=== PATIENT | female | born 1995 | race Caucasian/White ===

== ENCOUNTER 2018-03-05 19:24 | Emergency (ER) | payer MEDICAID, SELFPAY ==
[2018-03-05 19:26] VITALS: BP 125/79; PULSE 109; RESP 14; RESP 18; TEMP 36.9; O2SAT 98; BMI 39.1
--- NOTE | 2018-03-05 21:18 | NURSING ---
crisis states pt is cleared to go home with safety plan and followup appt. family aware and remains at bedside. awaiting MD discharge ppwk
[2018-03-05 21:25] VITALS: BP 99/67; PULSE 96; RESP 18; O2SAT 97
[2018-03-05 22:26] LABS: Absolute Lymphocyte Count 1.83 X10^3/ul (0.83-4.51); Absolute Neutrophil Count 2.8 X10^3/uL (2.0-7.7); Basophil# 0.01 X10^3/uL; Basophil% 0.2 % (0-1); Eosinophil# 0.06 X10^3/uL; Eosinophils% 1.2 % (0-5); Hematocrit 27.7 % (37-47); Hemoglobin 8.3 g/dl (12.0-15.0); Lymphocyte # 1.83 X10^3/ul (4.0); Lymphocyte % 35.8 % (19-41); Mean Corpuscular Hgb 27.1 pg (27.0-32.0); Mean Corpuscular Volume 90.5 fL (81-99); Mean Platelet Vol. 10.5 fl (6.2-12.0); Monocyte# 0.41 X10^3/uL; Neutrophil % 54.8 % (47-70); Platelet Count 380 K/mm3 (150-450); RBC Distribution Width CV 15.9 % (11.6-14.6); RBC Distribution Width SD 52.1 fl (35.1-43.9); Red Blood Count 3.06 M/mm3 (4.2-5.4); White Blood Count 5.1 K/mm3 (4.4-11.0)
[2018-03-05 22:27] LABS: POSITIVE COUNT NO; POSITIVE DIFFERENTIAL NO; POSITIVE MORPHOLOGY NO
[2018-03-05 22:34] LABS: Anion Gap 5 (5-15); BUN 11 mg/dL (7-18); Calcium,Total 8.2 mg/dL (8.5-10.1); Chloride 106 mmol/L (98-107); Creatinine, Serum 0.73 mg/dL (0.55-1.02); EST Glomerular Filtration Rate 104 mL/min (>60); Est Glom Filt Rate - Afr Amer 126 mL/min (>60); Glucose 93 mg/dL (74-106); Potassium 3.8 mmol/L (3.5-5.1); Sodium Level 138 mmol/L (136-145)
[2018-03-05 23:00] VITALS: BP 98/75; PULSE 89; RESP 16; O2SAT 98
--- NOTE | 2018-03-05 23:48 | ED.VISSUMM ---
- ER Visit Summary Date of Service: 03/05/18 Chief Complaint: Wound check History of Present Illness: The patient is a 22 F who presents for a wound check. She is about 2 weeks and did have a . She states that since yesterday she has had increased redness tenderness foul odor and green drainage from an opening in her wound. She vomited once today while in the shower. She felt dizzy but that improved after getting out of the shower. She also complains of some intermittent headaches ever since delivery. No fevers chest pain shortness of breath. Physical Examination: Heart rate 109 vitals otherwise normal Moist mucous membranes Heart regular rhythm tachycardia Lungs are clear Abdomen soft there is some mild wound dehiscence along the right side of the wound. I do not appreciate foul odor or drainage at this time. However there is a significant cellulitis involving most of the lower abdomen. Test Results: Labs notable for a hemoglobin of 8.3. Emergency Department Course and Treatment: Patient was given IV Unasyn. She was transferred to [facility] for further care. Treatment Plan: [] Disposition: Transfer Impression: Postoperative wound infection Cellulitis This note was generated with ipnexus dictation software. It may contain incorrect words, spelling, and punctuation that were not noted in review of the chart prior to signing ED Disposition - Plan for ED Patient: Chief Complaint: Wound Referrals: Care Physician,No Primary [Primary Care Provider] -
--- NOTE | 2018-03-05 23:51 | ED.DCSUM_ITS ---
- ER Visit Summary Date of Service: 03/05/18 Chief Complaint: Wound check History of Present Illness: The patient is a 22 F who presents for a wound check. She is about 2 weeks and did have a . She states that since yesterday she has had increased redness tenderness foul odor and green drainage from an opening in her wound. She vomited once today while in the shower. She felt dizzy but that improved after getting out of the shower. She also complains of some intermittent headaches ever since delivery. No fevers chest pain shortness of breath. Physical Examination: Heart rate 109 vitals otherwise normal Moist mucous membranes Heart regular rhythm tachycardia Lungs are clear Abdomen soft there is some mild wound dehiscence along the right side of the wound. I do not appreciate foul odor or drainage at this time. However there is a significant cellulitis involving most of the lower abdomen. Test Results: Labs notable for a hemoglobin of 8.3. Emergency Department Course and Treatment: Patient was given IV Unasyn. She was transferred to [facility] for further care. Treatment Plan: [] Disposition: Transfer Impression: Postoperative wound infection Cellulitis This note was generated with Syllabuster dictation software. It may contain incorrect words, spelling, and punctuation that were not noted in review of the chart prior to signing ED Disposition - Plan for ED Patient: Chief Complaint: Wound Referrals: Care Physician,No Primary [Primary Care Provider] -
[2018-03-06 00:25] VITALS: BP 108/80; PULSE 87; RESP 20; TEMP 36.9; O2SAT 97
== END 2018-03-06 01:19 | disposition short-term general hospital (02) ==
LOC: ED 22:24
PROVIDERS: Emergency Provider Emergency Medicine
DX: O86.09 Infection of obstetric surgical wound, other surgical site (principal); T81.30XA Disruption of wound, unspecified, initial encounter
CPT/HCPCS: 80048; 85025; 96365; 99284; J7050; A4216; J0295

== ENCOUNTER 2018-08-28 17:41 | Emergency (ER) | payer MEDICAID, SELFPAY ==
[2018-08-28 17:43] VITALS: BP 133/70; PULSE 112; RESP 16; TEMP 36.5; O2SAT 99; BMI 43.0
[2018-08-28 17:47] VITALS: BP 133/70; PULSE 112; RESP 16; TEMP 36.5; O2SAT 99
--- NOTE | 2018-08-28 17:59 | ED.VISSUMM ---
- ER Visit Summary Date of Service: 08/28/18 Chief Complaint: [Redness and drainage from scar] History of Present Illness: The patient is a 23 F [presents to the emergency department with complaint of some redness and drainage that she noticed to her scar yesterday. Patient states that she had a in February 2018 and 3 weeks later developed a wound infection. Patient required IV antibiotics for that. Eventually things resolved. Yesterday she lifted up her fat roll and noted that there was some drainage on her fingertip over the area of the incision and had a follow odor to it and she is concerned about wound infection again. Patient's not had any fevers. No urinary symptoms. No other complaints.] Physical Examination: [HEENT-PERRLA, EOMI. Cranial nerves II through XII grossly intact. TMs clear. Mucous membranes moist. No adenopathy. Cardiovascular-regular rate and rhythm without murmur or ectopy Lungs-clear to auscultation, chest wall stable without crepitus or subcu emphysema Abdomen-normoactive bowel sounds, soft, nontender, no rebound or rigidity, no peritoneal signs. Evaluation of the skin of the abdomen reveals that over the right side of the incision there is a circular area of erythema measuring approximately 3 cm in diameter. There is no evidence of dehiscence of the wound. There are no open areas in the skin. No drainage noted. Extremities-intact ?4, normal range of motion, normal pulses, atraumatic] Test Results: [None indicated] Emergency Department Course and Treatment: [Area of erythema was outlined in marker. Patient was given a dose of Keflex in the emergency department Treatment Plan: [I suspect the area of erythema may be fungal as it is in the skin fold. I will treat her with nystatin and also will cover with Keflex for possible cellulitis.] Disposition: [Discharged home in stable condition] Impression: [Candidal yeast infection] This note was generated with DataStax dictation software. It may contain incorrect words, spelling, and punctuation that were not noted in review of the chart prior to signing ED Disposition - Plan for ED Patient: Referrals: [facility] Doctor,Out of [Primary Care Provider] -
--- NOTE | 2018-08-28 18:02 | ED.DCSUM_ITS ---
- ER Visit Summary Date of Service: 08/28/18 Chief Complaint: [Redness and drainage from scar] History of Present Illness: The patient is a 23 F [presents to the emergency department with complaint of some redness and drainage that she noticed to her scar yesterday. Patient states that she had a in February 2018 and 3 weeks later developed a wound infection. Patient required IV antibiotics for that. Eventually things resolved. Yesterday she lifted up her fat roll and noted that there was some drainage on her fingertip over the area of the incision and had a follow odor to it and she is concerned about wound infection again. Patient's not had any fevers. No urinary symptoms. No other complaints.] Physical Examination: [HEENT-PERRLA, EOMI. Cranial nerves II through XII grossly intact. TMs clear. Mucous membranes moist. No adenopathy. Cardiovascular-regular rate and rhythm without murmur or ectopy Lungs-clear to auscultation, chest wall stable without crepitus or subcu emphysema Abdomen-normoactive bowel sounds, soft, nontender, no rebound or rigidity, no peritoneal signs. Evaluation of the skin of the abdomen reveals that over the right side of the incision there is a circular area of erythema measuring approximately 3 cm in diameter. There is no evidence of dehiscence of the wound. There are no open areas in the skin. No drainage noted. Extremities-intact ?4, normal range of motion, normal pulses, atraumatic] Test Results: [None indicated] Emergency Department Course and Treatment: [Area of erythema was outlined in marker. Patient was given a dose of Keflex in the emergency department Treatment Plan: [I suspect the area of erythema may be fungal as it is in the skin fold. I will treat her with nystatin and also will cover with Keflex for possible cellulitis.] Disposition: [Discharged home in stable condition] Impression: [Candidal yeast infection] This note was generated with [employer]zmik [employer] dictation software. It may contain incorrect words, spelling, and punctuation that were not noted in review of the chart prior to signing ED Disposition - Plan for ED Patient: Referrals: [facility] Doctor,Out of [Primary Care Provider] -
--- NOTE | 2018-08-28 18:02 | ED.DEP ---
ED Disposition - Plan for ED Patient: Instructions: ED Candidiasis Cutaneous Prescriptions: Cephalexin [Keflex] 500 mg PO Q6 #28 cap Nystatin/Triamcin Cream [Mycolog] 1 applic TOPICAL BID #1 tube Referrals: [facility] Doctor,Out of [Primary Care Provider] - 3-5 Days
[2018-08-28 18:03] VITALS: BP 119/77; PULSE 105; RESP 16; O2SAT 99
== END 2018-08-28 18:09 | disposition home or self-care (01) ==
LOC: ED 18:04
PROVIDERS: Emergency Provider Emergency Medicine
DX: B37.2 Candidiasis of skin and nail (principal)
CPT/HCPCS: 99282

== ENCOUNTER → 2019-12-10 | Outpatient (CLI) | payer MEDICAID, SELFPAY | END | disposition home or self-care (01) | LOC: LABSPEC 17:56 | DX: Z20.828 Contact with and (suspected) exposure to other viral communicable diseases (principal) | CPT/HCPCS: 87635; 94799; U0003 ==

== ENCOUNTER 2019-12-12 10:45 | Emergency (ER) | payer MEDICAID, SELFPAY ==
[2019-12-12 10:46] VITALS: BP 152/83; PULSE 102; RESP 16; TEMP 36.1; O2SAT 99; BMI 47.5
[2019-12-12 10:48] VITALS: BP 152/83; PULSE 102; RESP 16; TEMP 36.1; O2SAT 99
[2019-12-12] MEDS: Naproxen 250 MG Tablet 500 MG PO (11:05)
--- NOTE | 2019-12-12 11:11 | RAD_ITS ---
STUDY: X-RAY CHEST REASON FOR EXAM: Female, 24 years old. Cough and sore throat. TECHNIQUE: Single AP portable view of the chest. COMPARISON: 09/01/2014. FINDINGS: There are hypoventilatory changes in right lung base. No focal infiltrate is seen. There is no demonstrated pleural abnormality. Normal size heart. Normal mediastinum and kristin. Normal visualized pulmonary arteries. Normal visualized aortic arch and descending thoracic aorta. Normal visualized thoracic spine. Normal visualized ribs, clavicles, and shoulders. There is no demonstrated abnormality of the visualized soft tissue structures of the upper abdomen. RAD/Chest 1 View (Portable) IMPRESSION: Normal x-ray examination of the chest. Electronically Signed: Joel Garza MD at 12:03 EDT Tel , Service support ,
--- NOTE | 2019-12-12 11:55 | ED.DCSUM_ITS ---
- ER Visit Summary Date of Service: 12/12/19 Chief Complaint: Sore throat and cough History of Present Illness: The patient is a [address] Sherwood. She reports she has a sore throat that began 3 days ago. Says sharp pain is 1010 worsening to 10 currently. Is worsened by swallowing. She is taken Tylenol and NyQuil with minimal relief. She went to the urgent care 3 days ago and was placed on amoxicillin and has not had any improvement. She denies any known strep exposure. She states that however that this is similar pain to when she had strep before. They did test her for COVID 2 days ago. She has not gotten a result on this. She denies sick contacts. Patient reports that she has had subjective fever and chills for the past 3 days. She is congested. She has a cough productive green sputum without blood. She denies any chest pain or shortness of breath. Physical Examination: Vitals: Stable. Afebrile. General: Well-nourished and well-developed. Head: Normocephalic atraumatic. HEENT: Pharyngeal erythema. No tonsillar exudate or enlargement. No cervical lymphadenopathy. Neck: Supple, no lymphadenopathy. No JVD. Nontender. Cardiovascular: Regular rate and rhythm. No murmurs. Respiratory: No respiratory distress. Clear to auscultation bilaterally. Abdominal: Soft, nontender, nondistended, normal bowel sounds. No guarding, rebound, or peritoneal signs. Back: Nontender. Extremities: Nontender, no edema. Skin: Normal color, no rash. Neurologic: Alert and oriented ?3. Cranial nerves II through XII are intact. Normal strength and sensation. Psych: Normal affect. Test Results: Chest x-ray shows no acute disease. There is a poor inspiration. Rapid strep is negative. Emergency Department Course and Treatment: Patient was treated with naproxen and dexamethasone. She is resting comfortably. Treatment Plan: Had a prolonged discussion the patient that at this time I cannot rule out COVID. She is instructed to get the results of her test as soon as possible. She is instructed to quarantine in the meantime. Symptomatic care with fluids, Tylenol, and ibuprofen. Follow-up with her primary care physician in 2 weeks if not improving. Return to the emergency department for any worsening symptoms. Disposition: To home in improved and stable condition. Impression: 1. URI. 2. Pharyngitis. This note was generated with Game[employer] dictation software. It may contain incorrect words, spelling, and punctuation that were not noted in review of the chart prior to signing ED Disposition - Plan for ED Patient: Instructions: ED Pharyngitis Report Pending, ED Upper Resp Infec No Abx Tx Referrals: Nikhil Hess MD [Primary Care Provider] - 10-14 Days if not better
[2019-12-12 12:18] VITALS: RESP 18; O2SAT 98
== END 2019-12-12 12:19 | disposition home or self-care (01) ==
LOC: ED 11:02
PROVIDERS: Emergency Provider Emergency Medicine; PCP Family Medicine
DX: J02.9 Acute pharyngitis, unspecified (principal); J06.9 Acute upper respiratory infection, unspecified
CPT/HCPCS: 71045; 87880; 99283

== ENCOUNTER 2020-12-17 22:36 | Emergency (ER) | payer MEDICAID, SELFPAY ==
[2020-12-17 22:37] VITALS: BP 125/85; PULSE 152; RESP 16; TEMP 36.8; O2SAT 99; BMI 33.3
[2020-12-17 22:38] VITALS: BP 125/85; PULSE 152; RESP 16; TEMP 36.8; O2SAT 99
--- NOTE | 2020-12-17 23:28 | EDS_ITS ---
HPI HPI - GI History of Present Illness Chief Complaint: Diarrhea Informant: patient Narrative Narrative: Patient presents after multiple episodes of watery diarrhea today. She estimates she has had 40 episodes. She felt a little lightheaded in the shower. 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 She is not having chest pain or trouble breathing. She is actually not having any abdominal pain. No fevers or chills. She is not nauseated. No recent antibiotics travel or bad foods. No one she knows of is ill. Only abdominal surgery was gastric sleeve about 9 months ago and she has h ad no issues with this she is losing about 2 pounds per week. Nothing really makes the symptoms better or worse. Urination does not hurt her or burn. She does state that the urine is getting a little darker and decreased amount. PFSH PFSH Home Medications NK 12/12/19 [History Last Taken Unknown] Allergy/AdvReac Type Severity Reaction Status Date / Time nitrofurantoin Allergy Other Verified 12/17/20 22:38 [From Macrobid] Social History Smoking Status: Never smoker ROS ROS ED Constitutional Constitutional ED: Denies chills, fever(s), subjective, sweats or weight loss ENT ENT ED: Denies rhinorrhea or sore throat Cardiovascular Cardiovascular: Denies chest pain or palpitations Respiratory/Chest Respiratory/Chest: Denies cough, dyspnea or sputum Gastrointestinal Gastrointestinal: Reports diarrhea; Denies abdominal pain, constipation, melena, nausea or vomiting Genitourinary Genitourinary ED: Denies dysuria or hematuria Musculoskeletal Musculoskeletal: Denies back pain Integumentary Denies rash Neurologic Neurologic: Denies headache(s) or weakness Endocrine Endocrinology: Denies polydipsia or polyuria Hematologic/Lymphatic Hematologic/Lymphatic: Denies easy bleeding or easy bruising Allergic/Immunologic Allergic/Immunologic ED: Denies mouth swelling EXAM Physical Exam Const Vital Signs: 12/17/20 22:37 12/17/20 22:38 Temperature 98.2 F 98.2 F Temperature Source Temporal Temporal Pulse Rate 152 H 152 H Respiratory Rate 16 16 Blood Pressure 125/85 H 125/85 H Blood Pressure Mean 98 98 Pulse Ox 99 99 Oxygen Delivery Method Room Air Room Air Positive well nourished and well developed General Appearance ED: well developed and NAD MILES Reports dry mucous membranes Mouth ED: Yes dry mucous membranes Mouth: dry mucous membranes Eyes General Eye ED: Negative for pale conjunctiva or scleral icterus Resp normal respiratory effort Cardio regular rate, regular rhythm and no murmurs GI non-tender, non-distended and no masses Auscultation: normoactive bowel sounds Palpation: soft Back/Spine no CVA tenderness Neuro Sensorium / Orientation: alert and oriented to person Psych mental status grossly normal Skin Rashes: no rashes MDM MDM MDM Narrative Medical decision making narrative: Patient's blood work shows normal white count and hemoglobin. Electrolytes are normal other than a potassium of 3.3. We will replace this. is negative. Urine shows ketones consistent with decreased p.o. intake but otherwise no acute sign of infection. I rechecked the patient. She states she feels well. She went to the restroom once but really did not have much diarrhea. She would like to go home. She is not coughing. Her abdominal exam is quite benign. Her heart rate is still about 120s. She tells me her heart rate always runs in the 120s or more. This is why she is following up with cardiology. We will check EKG. EKG was checked. She is running heart rate of 123 which she states is her normal. Since she feels well I think it is reasonable we get her home. She has follow-up arranged. Lab Data Attestation: I reviewed the patient's lab results. Labs: Laboratory Results - last 24 hr 12/17/20 12/17/20 12/17/20 23:36 23:36 23:36 WBC 7.8 RBC 4.10 L Hgb 12.3 Hct 38.8 MCV 94.6 MCH 30.0 MCHC 31.7 L RDW Std Deviation 45.1 H RDW Coeff of Obdulio 13.0 Plt Count 253 MPV 11.8 Immature Gran % (Auto) 0.300 Neut % (Auto) 87.2 H Lymph % (Auto) 5.5 L [place] % (Auto) 6.7 Eos % (Auto) 0.0 Baso % (Auto) 0.3 Absolute Neuts (auto) 6.8 Absolute Lymphs (auto) 0.43 L Nucleated RBC % 0 Sodium 138 Potassium 3.3 L Chloride 106 Carbon Dioxide 24.0 Anion Gap 8 BUN 14 Creatinine 0.74 Estim Creat Clear Calc 91.12 Est GFR (MDRD) Af Amer 122 Est GFR (MDRD) Non-Af 101 BUN/Creatinine Ratio 19.0 Glucose 103 Calcium 8.9 Serum , Qual NEGATIVE Urine Color Urine Clarity Urine pH Ur Specific [place] Urine Protein Urine Glucose (UA) Urine Ketones Urine Occult Blood Urine Nitrite Urine Bilirubin Urine Urobilinogen Ur Leukocyte Esterase Urine RBC Urine WBC Ur Squamous Epith Cells Urine Bacteria Urine Mucus 12/18/20 00:35 WBC RBC Hgb Hct MCV MCH MCHC RDW Std Deviation RDW Coeff of Obdulio Plt Count MPV Immature Gran % (Auto) Neut % (Auto) Lymph % (Auto) [place] % (Auto) Eos % (Auto) Baso % (Auto) Absolute Neuts (auto) Absolute Lymphs (auto) Nucleated RBC % Sodium Potassium Chloride Carbon Dioxide Anion Gap BUN Creatinine Estim Creat Clear Calc Est GFR (MDRD) Af Amer Est GFR (MDRD) Non-Af BUN/Creatinine Ratio Glucose Calcium Serum , Qual Urine Color Yellow Urine Clarity Clear Urine pH 5.0 Ur Specific [place] 1.020 Urine Protein 15 H Urine Glucose (UA) Normal Urine Ketones 150 A* Urine Occult Blood 10 H Urine Nitrite Negative Urine Bilirubin Negative Urine Urobilinogen Normal Ur Leukocyte Esterase Negative Urine RBC 0 SEEN Urine WBC 0 SEEN Ur Squamous Epith Cells 0-5 SEEN Urine Bacteria RARE Urine Mucus 0 SEEN EKG Initial EKG: Comments: EKG done for tachycardia read by me shows sinus rhythm with tachycardic rate at 123. No ventricular ectopy. No acute ST elevation or depression consistent with infarct or ischemia. AK interval, QRS duration and QTc normal. Discharge Plan Triage Chief Complaint: Diarrhea ED Provider: Renard Castillo Dx/Rx/DC Orders Prescriptions: No Action NK RF: 0 Primary Care Provider: Nikhil Hess
[2020-12-17] MEDS: 0.9% Normal Saline 1,000 ML 1000 ML IV (23:39)
[2020-12-17] MEDS: Dicyclomine 20 MG/2 ML Vial IM (23:45)
[2020-12-18 00:08] LABS: Anion Gap 8 (5-15); BUN 14 mg/dL (7-18); Calcium,Total 8.9 mg/dL (8.5-10.1); Chloride 106 mmol/L (98-107); Creatinine, Serum 0.74 mg/dL (0.55-1.02); EST Glomerular Filtration Rate 101 mL/min (>60); Est Glom Filt Rate - Afr Amer 122 mL/min (>60); Estimated Creatinine Clearance 91.12 ml/min; Glucose 103 mg/dL (74-106); Potassium 3.3 mmol/L (3.5-5.1); Sodium Level 138 mmol/L (136-145)
[2020-12-18 00:23] LABS: Internal QC Validated? YES +Cl - CLEAR BKGD; Pregnancy, Serum, hCG Quali. NEGATIVE Negative
[2020-12-18 00:26] LABS: Absolute Lymphocyte Count 0.43 X10^3/uL (0.83-4.51); Absolute Neutrophil Count 6.8 X10^3/uL (2.0-7.7); Basophil# 0.02 X10^3/uL; Basophil% 0.3 % (0-1); Hematocrit 38.8 % (37-47); Hemoglobin 12.3 g/dL (12.0-15.0); Lymphocyte # 0.43 X10^3/ul (0.83-4.51); Lymphocyte % 5.5 % (19-41); Mean Corp Hgb Conc 31.7 g/dL (32-36); Mean Corpuscular Volume 94.6 fL (81-99); Mean Platelet Vol. 11.8 fl (6.2-12.0); Monocyte# 0.52 X10^3/uL; Monocyte% 6.7 % (0-10); NRBC Flagged by Analyzer 0 % (0-5); Neutrophil # 6.76 X10^3/uL (2.7-7.7); Neutrophil % 87.2 % (47-70); POSITIVE DIFFERENTIAL YES; Platelet Count 253 K/mm3 (150-450); RBC Distribution Width SD 45.1 fl (35.1-43.9); White Blood Count 7.8 K/mm3 (4.4-11.0)
[2020-12-18 00:29] LABS: Differential Indicated SCAN CRITERIA MET
[2020-12-18 00:40] LABS: Mucous, Urine 0 SEEN /hpf (<or=2+); Red Blood Cells-Urine 0 SEEN /hpf (0-5); White Blood Cells 0 SEEN /hpf (0-5)
[2020-12-18 00:46] LABS: Color, Urine Yellow (Yellow); Glucose, Dipstick Normal (Normal); Leukocyte Esterase-Dipstick Negative /ul (Negative); Nitrite-Dipstick Negative (Negative); Occult Blood-Urine 10 /ul (Negative); Protein-Dipstick 15 mg/dl (Negative); Urine Bilirubin Dipstick Negative (Negative); Urine Clarity Clear (Clear); Urine Urobilinogen Normal (Normal)
[2020-12-18 00:47] LABS: Ketone-Dipstick 150 mg/dl (Negative)
[2020-12-18 01:16] LABS: Bacteria RARE /hpf (None Seen); Squamous Epithelial Cells - UA 0-5 SEEN /hpf (5-10)
--- NOTE | 2020-12-18 02:09 | EKG12_ITS ---
Test Reason : DYSRYTHMIA Blood Pressure : / mmHG Vent. Rate : 123 BPM Atrial Rate : 123 BPM P-R Int : 144 ms QRS Dur : 078 ms QT Int : 290 ms P-R-T Axes : 030 086 -18 degrees QTc Int : 415 ms Sinus tachycardia Nonspecific ST and T wave abnormality Abnormal ECG Confirmed by NGOZI ANDRE, ULISES ([id number]), newspaper or periodical editor SOPHIA ERICKSON ([id number]) on 12/20/2020 9:52:05 AM Referred By: MELISSA Confirmed By:ULISES MELVIN MD
[2020-12-18] MEDS: Potassium Chloride Oral Tablet 20 MEQ PO (02:40)
[2020-12-18 02:44] VITALS: PULSE 112; RESP 16; TEMP 36.6
== END 2020-12-18 02:45 | disposition home or self-care (01) ==
PROVIDERS: Emergency Provider Emergency Medicine; PCP Family Medicine
DX: R19.7 Diarrhea, unspecified (principal); R42 Dizziness and giddiness
CPT/HCPCS: 80048; 81001; 84703; 85025; 93005; 96360; 96361; 96372; 99283; J7030

== ENCOUNTER 2024-05-06 02:54 | Emergency (ER) | payer OTHER, SELFPAY ==
[2024-05-06 02:55] VITALS: BP 126/64; PULSE 89; RESP 16; TEMP 36.6; O2SAT 98; BMI 37.3
[2024-05-06 03:44] LABS: Absolute Lymphocyte Count 1.39 X10^3/uL (0.83-4.51); Absolute Neutrophil Count 2.7 X10^3/uL (2.0-7.7); Basophil# 0.04 X10^3/uL; Basophil% 0.8 % (0-1); Eosinophil# 0.16 X10^3/uL; Eosinophils% 3.4 % (0-5); Hematocrit 28.2 % (37-47); Lymphocyte # 1.39 X10^3/ul (0.83-4.51); Lymphocyte % 29.4 % (19-41); Mean Corp Hgb Conc 28.4 g/dL (32-36); Mean Corpuscular Hgb 19.5 pg (27.0-32.0); Mean Corpuscular Volume 68.6 fL (81-99); Mean Platelet Vol. 9.8 fl (6.2-12.0); Monocyte# 0.39 X10^3/uL; Monocyte% 8.2 % (0-10); NRBC Flagged by Analyzer 0 % (0-5); Neutrophil # 2.74 X10^3/uL (2.7-7.7); POSITIVE MORPHOLOGY YES; Platelet Count 374 K/mm3 (150-450); RBC Distribution Width SD 55.7 fl (35.1-43.9); Red Blood Count 4.11 M/mm3 (4.2-5.4); White Blood Count 4.7 K/mm3 (4.4-11.0)
[2024-05-06 03:46] LABS: Differential Indicated SCAN CRITERIA MET
[2024-05-06 04:05] LABS: AST(SGOT) 10 U/L (15-37); Alanine Aminotransfer ALT/SGPT 13 U/L (13-56); Albumin, Serum 3.2 g/dL (3.2-5.0); Alkaline Phosphatase 42 U/L (45-117); Anion Gap 5 (5-15); BUN 8 mg/dL (7-18); BUN/Creat Ratio 19.3 RATIO (10-20); Bilirubin, Direct 0.08 mg/dL (0.00-0.30); Calcium,Total 8.8 mg/dL (8.5-10.1); Chloride 110 mmol/L (98-107); Creatinine, Serum 0.41 mg/dL (0.55-1.02); EST Glomerular Filtration Rate 191 mL/min (>60); Est Glom Filt Rate - Afr Amer 231 mL/min (>60); Estimated Creatinine Clearance 212.53 ml/min; Globulin 3.9 g/dL (2.2-4.2); Glucose 92 mg/dL (74-106); Lipase 28 U/L (13-75); Potassium 3.7 mmol/L (3.5-5.1); Protein, Total 7.1 g/dL (6.4-8.2); Sodium Level 139 mmol/L (136-145)
[2024-05-06] MEDS: Ondansetron 4 MG/2 ML Vial IV (04:13)
[2024-05-06] MEDS: Morphine 4 MG/ML Syringe IV (04:13)
[2024-05-06 04:24] LABS: Mucous, Urine 0 SEEN /hpf (<or=2+); Red Blood Cells-Urine 0 SEEN /hpf (0-5); White Blood Cells 0 SEEN /hpf (0-5)
[2024-05-06 04:25] LABS: Color, Urine Yellow (Yellow); Glucose, Dipstick Normal (Normal); Ketone-Dipstick Negative (Negative); Leukocyte Esterase-Dipstick 100 /ul (Negative); Nitrite-Dipstick Negative (Negative); Occult Blood-Urine Negative /ul (Negative); Protein-Dipstick 15 mg/dl (Negative); Urine Clarity Sl. Cloudy (Clear); Urine Urobilinogen 4 mg/dl (Normal)
[2024-05-06 04:26] LABS: hCG Titer Quant., Serum 48709 mIU/mL (1-3)
[2024-05-06 04:38] LABS: Bacteria 2+ /hpf (None Seen); Squamous Epithelial Cells - UA 0-5 SEEN /hpf (5-10); Urine Bilirubin Dipstick 1 mg/dL (Negative)
[2024-05-06 04:45] LABS: Differential Comment SCANNED
[2024-05-06 04:46] LABS: Hypochromasia 1+; Macrocytosis 1+; Microcytosis 2+; Polychromasia RARE
[2024-05-06 04:47] LABS: Anisocytosis 3+; Ovalocyte RARE
[2024-05-06 04:55] VITALS: BP 122/81; PULSE 71; RESP 16; O2SAT 99
--- NOTE | 2024-05-06 05:13 | EX.ED.DYSGE1 ---
HPI History of Present Illness Chief Complaint: Abd Pain Informant: patient and spouse/S.O. Narrative Narrative: Patient is a 29-year-old female who reports she is approximately 11 weeks . She states she was recently seen at other ER in the last few days secondary to weakness and found to have anemia and was given a blood transfusion. She states that over the last 12 to 24 hours she has had abdominal pain around the bellybutton. She states she has nausea with this but that is normal for her with this . She denies any vaginal bleeding or discharge. She denies any fevers chills or dysuria. She states there is been no trauma. However as the abdominal pain is persistent she presents for evaluation PFSH [facility] Home Medications ?Medication ?Instructions ?Recorded ?Last Taken ?Type vit no.95-ferrous 1 tab PO DAILY 05/06/24 Unknown History fumarate 28 mg-folic acid 800 mcg tablet () Allergy/AdvReac Type Severity Reaction Status Date / Time nitrofurantoin (From Allergy Other Verified 05/06/24 02:55 Macrobid) Surgical History (Updated 05/06/24 @ 02:56 by Estrella Rodriguez) Hx of cholecystectomy Social History Smoking Status: Never smoker ROS ROS ED Constitutional Constitutional ED: Denies chills or fever(s) Eyes Eyes: Denies blurry vision or change in vision ENT ENT ED: Denies sore throat Cardiovascular Cardiovascular: Denies chest pain Respiratory/Chest Respiratory/Chest: Denies cough or dyspnea Gastrointestinal Gastrointestinal: Reports abdominal pain and nausea; Denies diarrhea or vomiting Genitourinary Genitourinary ED: Denies dysuria or hematuria Musculoskeletal Musculoskeletal: Denies back pain Integumentary Denies rash Neurologic Neurologic: Denies headache(s) Hematologic/Lymphatic Hematologic/Lymphatic: Denies easy bleeding or easy bruising EXAM Physical Exam Const Vital Signs: 05/06/24 02:55 Temperature 98 F Temperature Source Oral Pulse Rate 89 Respiratory Rate 16 Blood Pressure 126/64 H Blood Pressure Mean 84 Pulse Ox 98 Positive well nourished and well developed General Appearance ED: well developed HEENT Reports moist mucous membranes HEENT Narrative: Normocephalic atraumatic No tongue or lip swelling no oral lesions no airway edema or compromise No secondary findings in the posterior pharynx to suggest infection Eyes PERRL and EOMs intact bilaterally General Eye ED: Negative for scleral icterus Neck supple Neck Narrative: No nuchal rigidity or meningeal signs Resp normal respiratory effort and clear to auscultation bilaterally Cardio regular rate and regular rhythm Rate: other Other Details: Heart is regular rate and rhythm without murmurs rubs or gallops Radial and carotid pulses are equal and symmetric GI non-distended GI Narrative: Abdomen is soft and nondistended and bowel sounds are normal active The fundus is just at the edges of the iliac crest/pubic symphysis consistent with reported gestational age. No voluntary guarding or rigidity or pulsatile mass Negative heel strike psoas and obturator signs Auscultation: normoactive bowel sounds Palpation: soft Back/Spine no CVA tenderness Extremity normal to inspection Extremity Narrative: No asymmetric edema no pitting edema negative Homans' sign bilaterally Neuro oriented x3, CN's II-XII intact bilaterally and no sensory deficits noted Sensorium / Orientation: alert Motor Exam: strength 5/5 throughout Psych mental status grossly normal Skin no rashes or lesions noted General Skin Exam: Negative for jaundice MDM MDM MDM Narrative Medical decision making narrative: Patient arrived to ER with stable vitals and reported abdominal pain around the umbilicus without trauma. She is reportedly 11 weeks and denies any bleeding or discharge. She states she is already had an ultrasound confirming a IUP. At this time patient may simply have abdominal pain in there is concern for gastroenteritis UTI complication or acute appendicitis or pancreatitis. Basic blood work is obtained which shows a normal white blood cell count which goes against an infectious process. Urine shows +2 bacteria but there are no white blood cells and she has no urinary symptoms and therefore I do not feel this is a true UTI and will not place her on antibiotics. Lipase is normal going against acute pancreatitis. The patient hCG value is consistent with her reported gestational age and I performed a bedside transabdominal ultrasound which showed a single IUP with normal heart rate which goes against complication. Patient's vitals remained stable and on repeat evaluation she had improvement of her pain in her abdomen remains soft and nonsurgical. Therefore as this appears not to be an infectious process acute pancreatitis or complication she can be discharged home and follow-up on an outpatient basis History & Record Review Discussion w/independent historian: Patient and Significant other Lab Data Attestation: I reviewed the patient's lab results. Labs: Laboratory Results - last 24 hr 05/06/24 05/06/24 03:28 04:19 WBC 4.7 RBC 4.11 L Hgb 8.0 L Hct 28.2 L MCV 68.6 L MCH 19.5 L MCHC 28.4 L RDW Std Deviation 55.7 H RDW Coeff of Obdulio 23.0 H Plt Count 374 MPV 9.8 Immature Gran % (Auto) 0.200 Neut % (Auto) 58.0 Lymph % (Auto) 29.4 [place] % (Auto) 8.2 Eos % (Auto) 3.4 Baso % (Auto) 0.8 Absolute Neuts (auto) 2.7 Absolute Lymphs (auto) 1.39 Nucleated RBC % 0 Differential Comment SCANNED Polychromasia RARE Hypochromasia 1+ Anisocytosis 3+ Microcytosis 2+ Macrocytosis 1+ Ovalocytes RARE Sodium 139 Potassium 3.7 Chloride 110 H Carbon Dioxide 24.0 Anion Gap 5 BUN 8 Creatinine 0.41 L Estim Creat Clear Calc 212.53 Est GFR (MDRD) Af Amer 231 Est GFR (MDRD) Non-Af 191 BUN/Creatinine Ratio 19.3 Glucose 92 Calcium 8.8 Total Bilirubin 0.30 Direct Bilirubin 0.08 AST 10 L ALT 13 Alkaline Phosphatase 42 L Total Protein 7.1 Albumin 3.2 Globulin 3.9 Lipase 28 HCG, Quant 48205 H Urine Color Yellow Urine Clarity Sl. Cloudy Urine pH 6.0 Ur Specific [place] 1.020 Urine Protein 15 H Urine Glucose (UA) Normal Urine Ketones Negative Urine Occult Blood Negative Urine Nitrite Negative Urine Bilirubin 1 H Urine Urobilinogen 4 H Ur Leukocyte Esterase 100 H Urine RBC 0 SEEN Urine WBC 0 SEEN Ur Squamous Epith Cells 0-5 SEEN Urine Bacteria 2+ Urine Mucus 0 SEEN Blood Type O POSITIVE Discharge Plan Triage Chief Complaint: Abd Pain ED Provider: Shay Luna Dx/Rx/DC Orders Clinical Impression: Abdominal pain during Instructions: Abdominal Pain, ED Abdominal Pain, Early Prescriptions: No Action PNV cmb#95-ferrous fumarate-FA [] 28 mg iron- 800 mcg tablet 1 tab PO DAILY Primary Care Provider: Care Physician,No Primary Referrals: Jordon Aquino MD [Non-Staff] - Care Physician,No Primary [Primary Care Provider] - Activity Restrictions/Additional Instructions: Your workup today did not reveal any obvious cause of your abdominal pain. Please follow-up with your TECHNOLOGY ADMINISTRATOR for repeat evaluation and if symptoms worsen or you have any further concerns please return to the ER Print Language: Estonian Disposition Disposition: Home, Self Care Discharge Date/Time: 05/06/24 05:25
[2024-05-06] MEDS: Lidocaine 2% Viscous15 ML UDC 15 ML PO (05:21)
[2024-05-06] MEDS: Mag Hydrox/Al Hydrox/Simeth 30 ML UDC PO (05:21)
[2024-05-06 05:24] VITALS: BP 122/81; PULSE 71; RESP 16; TEMP 36.6; O2SAT 99
== END 2024-05-06 05:25 | disposition home or self-care (01) ==
PROVIDERS: Emergency Provider Emergency Medicine; Visit Provider Emergency Medicine
DX: O26.891 Other specified pregnancy related conditions, first trimester (principal); R10.33 Periumbilical pain; Z3A.11 11 weeks gestation of pregnancy
CPT/HCPCS: 80048; 80076; 81001; 83690; 84702; 85025; 86900; 86901; 96374; 96375; 99284; A4216; J2405